=== PATIENT | male | born 1965 | race Caucasian/White ===

== ENCOUNTER 2019-02-19 00:06 | Observation (INO) | payer OTHER ==
[2019-02-19] MEDS ORDERED: SODIUM CHLORIDE 0.9% 1,000 ML IV STA (00:26)
--- NOTE | 2019-02-19 00:26 | ED ---
Alcohol HPI - General Chief Complaint: Alcohol Stated Complaint: ETOH Head Injury Time Seen by Provider: 02/19/19 00:18 Source: patient, EMS Mode of arrival: EMS - History of Present Illness Initial Comments: Roge is a 53 -year-old alcoholic who presents the emergency department today via EMS after having apparently had a fall. Patient states that he is drinking earlier in the day and fell he was found in the grass outside and was taking only care and [facility] and subsequently released. Patient reports since then he has had to call [employer]. He is noted to fall down approximately one step onto concrete, they do not believe he lost c onsciousness. He was ambulatory on scene however bystanders called 911. Upon EMS arrival the patient was ambulatory, admitted to being intoxicated. Denied any complaints but had bleeding from left side of his face. He was assisted to the [facility] and brought to the ER for evaluation of facial trauma and alcohol intoxication. - Related Data Allergies Allergy/AdvReac Type Severity Reaction Status Date / Time No Known Allergies Allergy Verified 02/19/19 00:16 Review of Systems ROS Statement: Those systems with pertinent positive or pertinent negative responses have been documented in the HPI. ROS Other: All systems not noted in ROS Statement are negative. Past Medical History Past Medical History: No Reported History History of Any Multi-Drug Resistant Organisms: None Reported Past Surgical History: No Surgical Hx Reported Past Psychological History: No Psychological Hx Reported Smoking Status: Current every day smoker Past Alcohol Use History: Heavy Past Drug Use History: Marijuana General Exam - General Exam Comments Initial Comments: Physical Exam GENERAL: Patient appears older than stated age Patient is well-developed and well-nourished. Patient is nontoxic and well-hydrated and is in no distress. HENT: Normocephalic Swelling of the left periorbital region with abrasion, there is also what ap pears to be old and new bruising TMs normal bilaterally no hemotympanum no Nobles's signs EYES: PERRL, EOMI PULMONARY: Unlabored respirations. No audible rales rhonchi or wheezing was noted. CARDIOVASCULAR: Tachycardic, regular Warm and well perfused extremities ABDOMEN: Soft and nontender with normal bowel sounds. SKIN: Abrasion on the left side of face, well-healing abrasion on the left elbow, bruising of the left arm, healing bruising on the left face as well as new abrasions : Normal external genitalia NEUROLOGIC: Patient is alert and oriented x3. Moving all extremities spontaneously Slurred speech MUSCULOSKELETAL: Normal extremities with adequate strength and full range of motion. No lower extremity swelling or edema. No calf tenderness. PSYCHIATRIC: Normal psychiatric evaluation. Course Vital Signs 02/19/19 00:09 Temperature 98.1 F Pulse Rate 98 Respiratory 18 Rate Blood Pressure 125/98 O2 Sat by Pulse 97 Oximetry Medical Decision Making - Medical Decision Making The patient was seen and evaluated history is obtained from the patient and signed patient admits to being intoxicated patient states that he fell, patient admits that he fell earlier in the day as well. Patient states that he had 2 beers. Patient admits to being a frequent drinker and having frequent falls his physical exam is concerning for frequent falls that he has multiple bruises in multiple stages of healing Labs and imaging were ordered Labs resulted with critical hyperkalemia however there was significant hemolysis and decision was made to finish bolusing the patient with IV fluids and repeat labs, repeat labs resulted with a potassium of only 4.3, I'll call significantly elevated, at this time considering that the patient has been evaluated in 2 emergency departments due to alcohol intoxication and falls I feel it would not be safe to discharge him home and he should be admitted to the hospital for monitoring. Computed tomography scan of the brain, face and cervical spine reveal no acute injuries aside from soft tissue swelling Patient care was discussed with Dr. Persaud of the [facility] physician group who agrees the plan for observation for alcohol intoxication - Lab Data Result diagrams: 02/19/19 00:12 02/19/19 01:10 Lab Results 02/19/19 02/19/19 02/19/19 Range/Units 00:12 00:12 00:12 WBC 8.5 (3.8-10.6) k/uL RBC 4.45 (4.30-5.90) m/uL Hgb 14.8 (13.0-17.5) gm/dL Hct 44.3 (39.0-53.0) % MCV 99.7 (80.0-100.0) fL MCH 33.3 (25.0-35.0) pg MCHC 33.4 (31.0-37.0) g/dL RDW 15.7 H (11.5-15.5) % Plt Count 295 (150-450) k/uL Neutrophils % 47 % Lymphocytes % 42 % Monocytes % 6 % Eosinophils % 2 % Basophils % 1 % Neutrophils # 4.0 (1.3-7.7) k/uL Lymphocytes # 3.5 (1.0-4.8) k/uL Monocytes # 0.5 (0-1.0) k/uL Eosinophils # 0.1 (0-0.7) k/uL Basophils # 0.1 (0-0.2) k/uL Macrocytosis Slight PT 9.7 (9.0-12.0) sec INR 0.9 (<1.2) APTT 21.8 L (22.0-30.0) sec Sodium 142 (137-145) mmol/L Potassium 6.1 H* (3.5-5.1) mmol/L Chloride 110 H (98-107) mmol/L Carbon Dioxide 21 L (22-30) mmol/L Anion Gap 11 mmol/L BUN 10 (9-20) mg/dL Creatinine 0.74 (0.66-1.25) mg/dL Est GFR (CKD-EPI)AfAm >90 (>60 ml/min/1.73 sqM) Est GFR (CKD-EPI)NonAf >90 (>60 ml/min/1.73 sqM) Glucose 104 H (74-99) mg/dL Calcium 8.6 (8.4-10.2) mg/dL Total Bilirubin 1.0 (0.2-1.3) mg/dL AST 59 (17-59) U/L ALT 8 L (21-72) U/L Alkaline Phosphatase 62 (38-126) U/L Troponin I (0.000-0.034) ng/mL Total Protein 7.8 (6.3-8.2) g/dL Albumin 4.6 (3.5-5.0) g/dL Serum Alcohol 415 H* mg/dL 02/19/19 02/19/19 Range/Units 00:12 01:10 WBC (3.8-10.6) k/uL RBC (4.30-5.90) m/uL Hgb (13.0-17.5) gm/dL Hct (39.0-53.0) % MCV (80.0-100.0) fL MCH (25.0-35.0) pg MCHC (31.0-37.0) g/dL RDW (11.5-15.5) % Plt Count (150-450) k/uL Neutrophils % % Lymphocytes % % Monocytes % % Eosinophils % % Basophils % % Neutrophils # (1.3-7.7) k/uL Lymphocytes # (1.0-4.8) k/uL Monocytes # (0-1.0) k/uL Eosinophils # (0-0.7) k/uL Basophils # (0-0.2) k/uL Macrocytosis PT (9.0-12.0) sec INR (<1.2) APTT (22.0-30.0) sec Sodium 143 (137-145) mmol/L Potassium 4.3 (3.5-5.1) mmol/L Chloride 112 H (98-107) mmol/L Carbon Dioxide 24 (22-30) mmol/L Anion Gap 7 mmol/L BUN 10 (9-20) mg/dL Creatinine 0.69 (0.66-1.25) mg/dL Est GFR (CKD-EPI)AfAm >90 (>60 ml/min/1.73 sqM) Est GFR (CKD-EPI)NonAf >90 (>60 ml/min/1.73 sqM) Glucose 108 H (74-99) mg/dL Calcium 8.6 (8.4-10.2) mg/dL Total Bilirubin 0.1 L (0.2-1.3) mg/dL AST 40 (17-59) U/L ALT 19 L (21-72) U/L Alkaline Phosphatase 65 (38-126) U/L Troponin I 0.015 (0.000-0.034) ng/mL Total Protein 6.9 (6.3-8.2) g/dL Albumin 4.1 (3.5-5.0) g/dL Serum Alcohol 387 H* mg/dL Disposition Clinical Impression: Alcoholic intoxication Disposition: ADMITTED IP TO THIS HOSP Condition: Stable Referrals: None,Stated [Primary Care Provider] - 1-2 days
[2019-02-19 00:41] LABS: Basophils # (A) 0.1 k/uL (0-0.2); Basophils % (A) 1 %; Eosinophils # (A) 0.1 k/uL (0-0.7); Eosinophils % (A) 2 %; HCT 44.3 % (39.0-53.0); HGB 14.8 gm/dL (13.0-17.5); Lymphocytes # (A) 3.5 k/uL (1.0-4.8); Lymphocytes % (A) 42 %; MCH 33.3 pg (25.0-35.0); MCHC 33.4 g/dL (31.0-37.0); MCV 99.7 fL (80.0-100.0); Macrocytosis Slight; Mean Platelet Volume 7.2; Monocytes # (A) 0.5 k/uL (0-1.0); Monocytes % (A) 6 %; Neutrophils % (A) 47 %; Platelet Count 295 k/uL (150-450); RBC 4.45 m/uL (4.30-5.90); RDW 15.7 % (11.5-15.5); WBC 8.5 k/uL (3.8-10.6)
[2019-02-19 00:50] LABS: ALT 8 U/L (21-72); AST 59 U/L (17-59); African American GFR (CKD) >90 (>60 ml/min/1.73 sqM); Albumin 4.6 g/dL (3.5-5.0); Alkaline Phosphatase 62 U/L (38-126); Anion Gap 11 mmol/L; Blood Urea Nitrogen 10 mg/dL (9-20); Calcium 8.6 mg/dL (8.4-10.2); Carbon Dioxide 21 mmol/L (22-30); Chloride 110 mmol/L (98-107); Glucose 104 mg/dL (74-99); Sodium 142 mmol/L (137-145); Total Protein 7.8 g/dL (6.3-8.2)
--- NOTE | 2019-02-19 00:56 | XR ---
EXAM: XR Pelvis, 1 or 2 Views CLINICAL HISTORY: ITS.REASON XR Reason: Trauma TECHNIQUE: Frontal view of the pelvis. COMPARISON: No relevant prior studies available. FINDINGS: Bones/joints: Unremarkable. No acute fracture. No dislocation. Soft tissues: No acute findings. IMPRESSION: No acute findings.
--- NOTE | 2019-02-19 00:57 | XR ---
EXAM: XR Chest, 1 View CLINICAL HISTORY: ITS.REASON XR Reason: trauma TECHNIQUE: Frontal view of the chest. COMPARISON: No relevant prior studies available. FINDINGS: Lungs: Unremarkable. No consolidation. Pleural space: Unremarkable. No pneumothorax. Heart: No pneumomediastinum. Mediastinum: Unremarkable. Bones/joints: No definite fracture. IMPRESSION: No acute findings.
[2019-02-19 00:58] LABS: INR 0.9 (<1.2); Prothrombin Time 9.7 sec (9.0-12.0)
[2019-02-19 00:59] LABS: Partial Thromboplastin Time 21.8 sec (22.0-30.0)
[2019-02-19 01:04] LABS: Alcohol 415 mg/dL
[2019-02-19 01:05] LABS: Potassium 6.1 mmol/L (3.5-5.1)
[2019-02-19 01:30] LABS: ALT 19 U/L (21-72); AST 40 U/L (17-59); African American GFR (CKD) >90 (>60 ml/min/1.73 sqM); Albumin 4.1 g/dL (3.5-5.0); Alkaline Phosphatase 65 U/L (38-126); Anion Gap 7 mmol/L; Blood Urea Nitrogen 10 mg/dL (9-20); Calcium 8.6 mg/dL (8.4-10.2); Carbon Dioxide 24 mmol/L (22-30); Chloride 112 mmol/L (98-107); Glucose 108 mg/dL (74-99); Potassium 4.3 mmol/L (3.5-5.1); Sodium 143 mmol/L (137-145); Total Bilirubin 0.1 mg/dL (0.2-1.3); Total Protein 6.9 g/dL (6.3-8.2)
--- NOTE | 2019-02-19 01:37 | CT ---
EXAM: CT Maxillofacial Without Intravenous Contrast CLINICAL HISTORY: ITS.REASON CT Reason: trauma TECHNIQUE: Axial computed tomography images of the face without intravenous contrast. This CT exam was performed using one or more of the following dose reduction techniques: automated exposure control, adjustment of the mA and/or kV according to patient size, and/or use of iterative reconstruction technique. COMPARISON: No relevant prior studies available. FINDINGS: Bones/joints: No acute fracture. Soft tissues: See below. Orbits: Left periorbital soft tissue injury. Sinuses: No air-fluid levels. IMPRESSION: Left periorbital soft tissue injury.
--- NOTE | 2019-02-19 01:38 | CT ---
EXAM: CT Head Without Intravenous Contrast CLINICAL HISTORY: ITS.REASON CT Reason: trauma TECHNIQUE: Axial computed tomography images of the head/brain without intravenous contrast. This CT exam was performed using one or more of the following dose reduction techniques: automated exposure control, adjustment of the mA and/or kV according to patient size, and/or use of iterative reconstruction technique. COMPARISON: No relevant prior studies available. FINDINGS: Brain: No hemorrhage. No edema. Ventricles: Unremarkable. No ventriculomegaly. Bones/joints: No acute fracture. Soft tissues: Unremarkable. Sinuses: No fluid levels. Mastoid air cells: Unremarkable as visualized. No mastoid effusion. IMPRESSION: No acute intracranial findings EXAM: CT Cervical Spine Without Intravenous Contrast CLINICAL HISTORY: ITS.REASON CT Reason: trauma TECHNIQUE: Axial computed tomography images of the cervical spine without intravenous contrast. This CT exam was performed using one or more of the following dose reduction techniques: automated exposure control, adjustment of the mA and/or kV according to patient size, and/or use of iterative reconstruction technique. COMPARISON: No relevant prior studies available. FINDINGS: Vertebrae: No acute fracture. Discs/spinal canal/neural foramina: No suspicious findings. Soft tissues: Unremarkable. IMPRESSION: No acute findings.
[2019-02-19 01:44] LABS: Alcohol 387 mg/dL
[2019-02-19] MEDS ORDERED: NALOXONE 0.4 MG/ML 1 ML VIAL IV PRN (02:05)
[2019-02-19] MEDS ORDERED: THIAMINE 100 MG/ML 2 ML VIAL IM STA (02:06)
[2019-02-19] MEDS ORDERED: LORazepam 2 MG/ML INJ IV PRN ×3 (02:06)
[2019-02-19 03:04] VITALS: RESP 16; TEMP 97.8
[2019-02-19 05:14] VITALS: BP 108/68; PULSE 82
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
[2019-02-19] MEDS: SODIUM CHLORIDE 0.9% 1,000 ML IV SCH ×2 (07:55→09:50)
[2019-02-19] MEDS ORDERED: THIAMINE 100 MG TAB PO SCH (17:00)
== END 2019-02-19 13:44 | disposition home or self-care (01) ==
LOC: EC 00:06 → 3NMEDONC 02:07
PROVIDERS: ADMIT Internal Medicine; ATTEND Internal Medicine
DX: F10.229 Alcohol dependence with intoxication, unspecified (principal); E87.5 Hyperkalemia; S00.212A Abrasion of left eyelid and periocular area, initial encounter; S00.81XA Abrasion of other part of head, initial encounter; S40.022A Contusion of left upper arm, initial encounter; W19.XXXA Unspecified fall, initial encounter; F17.200 Nicotine dependence, unspecified, uncomplicated; R29.6 Repeated falls
CPT/HCPCS: 36415; 70450; 70486; 71045; 72125; 72170; 80053; 80320; 84484; 85025; 85610; 85730; 93005; 96372; 99285